=== PATIENT | male | born 1960 | race Caucasian/White ===

== ENCOUNTER 2020-11-10 11:27 | Emergency (ER) | payer MEDICAID ==
[2020-11-10] MEDS ORDERED: Ketorolac 30 MG/ML SDV IVPUSH ONE (12:18)
[2020-11-10] MEDS ORDERED: Dicyclomine 10 MG Cap PO ONE (12:18)
[2020-11-10 12:48] LABS: CHLORIDE,CL 99 mmol/L (98-107); SODIUM,NA 136 mmol/L (136-145)
[2020-11-10 12:56] LABS: ANION GAP 17.8 mmol/L (5-15)
--- NOTE | 2020-11-10 13:26 | EDM.PDOC ---
ED HPI GENERAL MEDICAL PROBLEM - General Chief Complaint: Abdominal Pain Stated Complaint: PANCREATITIS Time Seen by Provider: 11/10/20 11:30 - History of Present Illness INITIAL COMMENTS - FREE TEXT/NARRATIVE: See paper chart - Related Data Allergies Allergy/AdvReac Type Severity Reaction Status Date / Time No Known Allergies Allergy Verified 11/04/20 09:25 Home Meds: Home Meds Acetaminophen [Pain Relief] 1,000 mg PO Q6H PRN 11/04/20 [History] Amylase/Lipase/Protease [Creon DR 24,000 Unit] 1 cap PO TID 11/04/20 [History] Cholecalciferol (Vitamin D3) [Vitamin D3] 2,000 unit PO DAILY 11/04/20 [History] Cyclobenzaprine [Flexeril] 10 mg PO BEDTIME PRN 11/04/20 [History] Hydrocodone/Acetaminophen [HYDROcodone-Acetaminophen 5-325 MG] 1 each PO BID PRN 11/04/20 [History] Melatonin 3 mg PO BEDTIME 11/04/20 [History] Mirtazapine 30 mg PO BEDTIME 11/04/20 [History] Multivitamin 1 each PO DAILY 11/04/20 [History] Nicotine Polacrilex [Nicotine Lozenge] 2 mg BC Q1H PRN 11/04/20 [History] Nicotine [Nicotine Patch] 21 mg TD DAILY 11/04/20 [History] Omeprazole 20 mg PO DAILY 11/04/20 [History] Vitamin B Complex [B Complex] 1 each PO DAILY 11/04/20 [History] Past Medical History - Past Health History Medical/Surgical History: Denies Medical/Surgical History HEENT History: Reports: Other (See Below) Other HEENT History: nasal/septal perforation Cardiovascular History: Reports: Hypertension, Other (See Below) Other Cardiovascular History: tachycardia HR 100-115. HX SVT Gastrointestinal History: Reports: Chronic Constipation, Other (See Below) Other Gastrointestinal History: perihepatic fluid collection. Alcohol-induced acute pancreatitis. Pancreatic pseudocyst. Acute/chronic pancreatitis. Poor appetite Psychiatric History: Reports: Addiction, Anxiety, Depression, Other (See Below) Other Psychiatric History: moderate alcohol dependency Endocrine/Metabolic History: Reports: Other (See Below) Other Endocrine/Metabolic History: alcohol induced pancreatitis (chronic and acute); pancreatic pseudocyst Hematologic History: Reports: Other (See Below) Other Hematologic History: thrombocytosis - Past Surgical History GI Surgical History: Reports: EGD, Hernia Repair/Other ED ROS GENERAL - Review of Systems Review Of Systems: See Below Reason Not Obtained: See paper chart Constitutional: Reports: No Symptoms HEENT: Reports: No Symptoms Respiratory: Reports: No Symptoms Cardiovascular: Reports: No Symptoms Endocrine: Reports: No Symptoms GI/Abdominal: Reports: Abdominal Pain, Decreased Appetite. Denies: Constipation, Diarrhea, Distension, Flatus, Hematemesis, Hematochezia, Melena, Nausea, Vomiting : Reports: No Symptoms Musculoskeletal: Reports: No Symptoms Skin: Reports: No Symptoms Neurological: Reports: No Symptoms Psychiatric: Reports: No Symptoms Hematologic/Lymphatic: Reports: No Symptoms Immunologic: Reports: No Symptoms ED EXAM, GI/ABD - Physical Exam Exam: See Below Text/Narrative:: See paper chart Exam Limited By: No Limitations General Appearance: Alert, WD/WN, No Apparent Distress, Other Course - Vital Signs Text/Narrative:: Computer system was down at the initial presentation please see paper chart for exam HPI Spoke with primary care provider Maricel Lawrence in regards to the patient lab work pulled the other day white count of 22 with a left shift lipase 670 and it is been higher CRP was 308 Labs today white count of 14.5 platelets 742 AST 11 ALT at 13 CRP of 22.3 amylase 94 lipase 206 urinalysis had 40 ketones Rechecked patient states he is feeling better he is okay with disposition discharge follow-up with primary and GI He is actively drinking p.o. with no issues HR rechecked 101 - Orders/Labs/Meds Labs: Laboratory Tests 11/10/20 11/10/20 11/10/20 Range/Units 12:00 12:00 12:07 WBC 14.5 H (4.0-10.0) x10^3/uL RBC 4.42 L (4.5-6.0) x10^6/uL Hgb 13.3 L (14.0-18.0) g/dL Hct 39.2 L (40.0-52.0) % MCV 88.7 (78.0-93.0) fL MCH 30.1 (26.0-32.0) pg MCHC 33.9 (32.0-36.0) g/dL RDW Coeff of Kristyn 14.8 (10.0-15.0) % Plt Count 742 H (130-400) x10^3/uL Immature Gran % (Auto) 1.00 H (0.00-0.43) % Neut % (Auto) 81.9 H (50.0-80.0) % Lymph % (Auto) 10.3 L (25.0-50.0) % Schleicher % (Auto) 6.1 (2.0-11.0) % Eos % (Auto) 0.5 (0.0-4.0) % Baso % (Auto) 0.2 (0.2-1.2) % Neut # (Auto) 11.9 H (1.8-7.7) x10^3/uL Lymph # (Auto) 1.5 (1.0-4.8) x10^3/uL Schleicher # (Auto) 0.9 H (0.0-0.8) x10^3/uL Eos # (Auto) 0.1 (0.0-0.5) x10^3/uL Baso # (Auto) 0.0 (0.0-0.2) x10^3/uL Immature Gran # (Auto) 0.15 H (0.00-0.07) x10^3/uL Sodium 136 (136-145) mmol/L Potassium 3.8 (3.5-5.1) mmol/L Chloride 99 (98-107) mmol/L Carbon Dioxide 23 (21-32) mmol/L Anion Gap 17.8 H (5-15) mmol/L BUN 12 (7-18) mg/dL Creatinine 1.0 (0.70-1.30) mg/dL Est Cr Clr Drug Dosing TNP Estimated GFR (MDRD) > 60 Glucose 109 H (70-99) mg/dL Calcium 8.5 (8.5-10.1) mg/dL Corrected Calcium 9.8 (8.5-10.1) mg/dL Total Bilirubin 0.4 (0.2-1.0) mg/dL AST 11 L (15-37) U/L ALT 13 L (16-63) U/L Alkaline Phosphatase 101 (46-116) U/L Creatine Kinase 10 L (39-308) U/L C-Reactive Protein 22.3 H (<=0.9) mg/dL Total Protein 7.4 (6.4-8.2) g/dL Albumin 2.4 L (3.4-5.0) g/dL Globulin 5.0 Albumin/Globulin Ratio 0.48 Amylase 94 (25-115) U/L Lipase 206 (73-393) U/L Urine Color Yellow (YELLOW) Urine Appearance Clear (CLEAR) Urine pH 5.0 (5.0-8.0) Ur Specific Penn 1.025 Urine Protein Trace H (NEGATIVE) mg/dL Urine Glucose (UA) Negative (NEGATIVE) mg/dL Urine Ketones 40 H (NEGATIVE) mg/dL Urine Occult Blood Negative (NEGATIVE) Urine Nitrite Negative (NEGATIVE) Urine Bilirubin Small H (NEGATIVE) Urine Urobilinogen 0.2 (0.2) EU/dL Ur Leukocyte Esterase Negative (NEGATIVE) Meds: Medications Discontinued Medications Generic Name Dose Route Start Last Admin Trade Name Freq PRN Reason Stop Dose Admin Dicyclomine HCl 10 mg 11/10/20 12:18 Dicyclomine 10 Mg Cap PO 11/10/20 12:19 ONETIME ONE Ketorolac Tromethamine 30 mg 11/10/20 12:18 Ketorolac 30 Mg/Ml Sdv IVPUSH 11/10/20 12:19 ONETIME ONE Departure - Departure Time of Disposition: 13:15 Disposition: Home, Self-Care 01 Condition: Good Clinical Impression: Abdominal pain, Pancreatitis, chronic - Discharge Information Instructions: Chronic Pancreatitis, Abdominal Pain, Adult, [id number] Referrals: Maricel Lawrence MD [Primary Care Provider] - Forms: ED Department Discharge Additional Instructions: Follow-up with your primary care provider in the next 24 to 48 hours call your GI provider see if you can get an appointment sooner than later Take all your medicines as directed Return here to the emergency room if anything changes or gets worse - Problem List & Annotations (1) Abdominal pain SNOMED Code(s): 85987074 Code(s): R10.9 - UNSPECIFIED ABDOMINAL PAIN Status: Acute Current Visit: Yes (2) Pancreatitis, chronic SNOMED Code(s): 446145094 Code(s): K86.1 - OTHER CHRONIC PANCREATITIS Status: Acute Current Visit: Yes
== END 2020-11-10 13:30 | disposition home or self-care (01) ==
LOC: VM.ED 11:27
DX: K86.1 Other chronic pancreatitis (principal); I10 Essential (primary) hypertension; Z79.899 Other long term (current) drug therapy
CPT/HCPCS: 80053; 81003; 82150; 82550; 83690; 85025; 86140; 93005; 96374; 99284; 99284-25; A9270-GY; J1885